=== PATIENT | female | born 1965 | race African-American/Black ===

== ENCOUNTER 2018-11-10 10:40 | Outpatient (CLI) | payer BC ==
--- NOTE | 2018-11-10 15:36 | Mammography Report ---
BILATERAL DIGITAL SCREENING MAMMOGRAM with CAD and DIGITAL BREAST TOMOSYNTHESIS (DBT) : 11/10/18 11:00:00 CLINICAL: Routine screening. COMPARISON:None available. However, a prior mammogram was apparently done at [place]. FINDINGS: The breasts are heterogeneously dense, which may obscure small masses.A left asymmetry on the MLO view requires comparison with a prior mammogram or additional imaging. No architectural distortion or suspicious calcifications. The right breast is negative. IMPRESSION: No mammographic evidence of malignancy. IMPRESSION: Left asymmetry requiring further evaluation. BI-RADS CATEGORY: 0 -- Additional Evaluation Required RECOMMENDATION: Comparison with a previous mammogram. We will attempt to obtain a prior mammogram for comparison. If we do not obtain a prior mammogram within 30 days, a revised report will be issued recommending a recall for additional imaging. Please be advised that the patient should not schedule an appointment for return until adequate time (at least 2 weeks) has passed for us to obtain the prior mammogram. COMMENT: 1. Dense breast tissue, i.e., adenosis, fibrocystic changes, etc., may obscure an underlying neoplasm. 2. Approximately 10% of cancers are not detected with mammography. 3. A negative mammography report should not delay biopsy if a clinically suspicious mass is present. COMMENT: Patient follow-up letters are generated via our [employer] application.
== END 2018-11-10 10:41 | disposition home or self-care (01) ==
LOC: SPVWC 10:40
PROVIDERS: ATTEND Internal Medicine
DX: Z12.31 Encounter for screening mammogram for malignant neoplasm of breast (principal)
CPT/HCPCS: 77063; 77067